=== PATIENT | male | born 1990 | race American Indian/Alaskan Native ===

== ENCOUNTER 2017-09-23 01:55 | Emergency (ER) | payer OTHER ==
[2017-09-23] MEDS ORDERED: NORCO 5/325 PO ONE (08:00)
[2017-09-23] MEDS ORDERED: ZOFRAN ODT PO ONE (08:00)
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
[2017-09-23 08:20] LABS: Basophils # (Auto) 0.1 K/mm3 (0.0-0.1); Eosinophils # (Auto) 0.5 K/mm3 (0.0-0.4); Eosinophils % (Auto) 5.3 % (0.0-4.3); Hematocrit 43.8 % (35.5-45.6); Hemoglobin 14.7 gm/dl (11.8-15.2); Lymphocytes # (Auto) 4.3 K/mm3 (1.2-5.4); Lymphocytes % (Auto) 44.7 % (13.4-35.0); Mean Corpuscular HGB Conc 34 % (32-34); Mean Corpuscular Hemoglobin 29 pg (28-32); Mean Corpuscular Volume 86 fl (84-94); Monocytes # (Auto) 0.6 K/mm3 (0.0-0.8); Monocytes % (Auto) 6.5 % (0.0-7.3); Platelet Count 200 K/mm3 (140-440); Red Blood Count 5.12 M/mm3 (3.65-5.03); Red Cell Distribution Width 13.2 % (13.2-15.2)
[2017-09-23 08:43] LABS: Alanine Aminotransferase 17 units/L (7-56); Albumin 4.6 g/dL (3.9-5); BUN/Creatinine Ratio 18; Blood Urea Nitrogen 16 mg/dL (9-20); Calcium 9.4 mg/dL (8.4-10.2); Hemolysis Index 13
[2017-09-23 09:02] LABS: Bilirubin,Direct < 0.2 mg/dL (0-0.2)
[2017-09-23 09:12] VITALS: BP 118/72
--- NOTE | 2017-09-23 09:20 | Cat Scan Report ---
CT ABDOMEN PELVIS WITH CONTRAST: HISTORY: abdominal pain. COMPARISON: none. TECHNIQUE: Helical CT in 1.25mm intervals following IV contrast. Sagittal and coronal reconstructions. FINDINGS: Lung bases: Normal. Liver: Normal. Biliary system: Normal. Pancreas: Normal. Spleen: Normal. Kidneys/ureters/bladder: Normal. Adrenal glands: Normal. Aorta: Normal. Intestines: Normal. Appendix: Normal. Pelvic viscera: Normal. Ascites: None. Adenopathy: None. Musculoskeletal: Normal. IMPRESSION: Unremarkable CT scan of the abdomen and pelvis with contrast.
== END 2017-09-23 09:57 | disposition home or self-care (01) ==
LOC: ED 01:55
DX: R10.33 Periumbilical pain (principal); F17.200 Nicotine dependence, unspecified, uncomplicated; V89.2XXA Person injured in unspecified motor-vehicle accident, traffic, initial encounter; Y93.89 Activity, other specified; Y92.89 Other specified places as the place of occurrence of the external cause; Y99.8 Other external cause status
CPT/HCPCS: 36415; 74177; 80048; 80074; 85025; 99284; Q9967; Q0162

== ENCOUNTER 2017-10-29 10:09 | Emergency (ER) | payer SELFPAY ==
[2017-10-29 10:44] VITALS: BP 153/91
[2017-10-29 12:16] LABS: Bilirubin,Urine NEG (Negative); Blood,Urine SM (Negative); Color,Urine Yellow (Yellow); Protein,Urine <15 mg/dL mg/dL (Negative)
[2017-10-29] MEDS ORDERED: XYLOCAINE 1% MPF 5 mL INFILTRATI ONE (12:16)
[2017-10-29] MEDS ORDERED: ZITHROMAX PO ONE (12:16)
[2017-10-29] MEDS ORDERED: ROCEPHIN IM ONE (12:16)
--- NOTE | 2017-10-29 12:21 | Emergency Department Report ---
ED Male HPI - General Chief complaint: Urogenital-Male Stated complaint: PENILE DISCHARGE Time Seen by Provider: 10/29/17 11:11 Source: patient Mode of arrival: Ambulatory Limitations: No Limitations - History of Present Illness Initial comments: this is a 27-year-old male that presents with penile discharge x1 day. Patient states he had sexual intercourse unprotected last week and then developed the symptoms. Patient states the penile discharge is greenish in color. Patient denies any testicular pain, testicular swelling, penile pain or ulcers, fever, chills, nausea, vomiting, chest pain, short of breath. Patient denies any dysuria or polyuria or hematuria. Patient denies any allergies or significant past medical history. MD Complaint: penile discharge -: days(s) (1) Location: penis Radiation: none Severity: mild Severity scale (0 -10): 0 Improves with: none Worsens with: none discharge. denies: swelling, mass, rash, urinary retention, blood in urine, dysuria, fever, nausea/vomiting, incontinence - Related Data Previous Rx's Medication Instructions Recorded Last Taken Type Cyclobenzaprine [Flexeril] 10 mg PO TID PRN #12 tablet 09/23/17 Unknown Rx Ibuprofen [Motrin] 800 mg PO Q8HR PRN #30 tablet 09/23/17 Unknown Rx Allergies Allergy/AdvReac Type Severity Reaction Status Date / Time No Known Allergies Allergy Verified 10/29/17 10:43 ED Review of Systems ROS: Stated complaint: PENILE DISCHARGE Other details as noted in HPI Constitutional: denies: chills, fever Eyes: denies: eye pain, eye discharge, vision change ENT: denies: ear pain, throat pain Respiratory: denies: cough, shortness of breath, wheezing Cardiovascular: denies: chest pain, palpitations Endocrine: no symptoms reported Gastrointestinal: denies: abdominal pain, nausea, diarrhea Genitourinary: discharge. denies: urgency, dysuria Musculoskeletal: denies: back pain, joint swelling, arthralgia Skin: denies: rash, lesions Neurological: denies: headache, weakness, paresthesias Psychiatric: denies: anxiety, depression Hematological/Lymphatic: denies: easy bleeding, easy bruising ED Past Medical Hx - Social History Smoking Status: Current Every Day Smoker Substance Use Type: None - Medications Home Medications: Home Medications Medication Instructions Recorded Confirmed Last Taken Type Cyclobenzaprine [Flexeril] 10 mg PO TID PRN #12 tablet 09/23/17 Unknown Rx Ibuprofen [Motrin] 800 mg PO Q8HR PRN #30 tablet 09/23/17 Unknown Rx ED Physical Exam - General Limitations: No Limitations General appearance: alert, in no apparent distress - Head Head exam: Present: atraumatic, normocephalic - Eye Eye exam: Present: normal appearance, PERRL Pupils: Present: normal accommodation - ENT ENT exam: Present: normal exam, normal orophraynx, mucous membranes moist, TM's normal bilaterally, normal external ear exam - Neck Neck exam: Present: normal inspection, full ROM. Absent: tenderness, meningismus, lymphadenopathy, thyromegaly - Respiratory Respiratory exam: Present: normal lung sounds bilaterally. Absent: respiratory distress, wheezes, rales, rhonchi, stridor, chest wall tenderness, accessory muscle use, decreased breath sounds, prolonged expiratory - Cardiovascular Cardiovascular Exam: Present: regular rate, normal rhythm, normal heart sounds. Absent: irregular rhythm, systolic murmur, diastolic murmur, rubs, gallop - GI/Abdominal GI/Abdominal exam: Present: soft, normal bowel sounds - Rectal Rectal exam: Present: deferred - exam: Present: normal inspection. Absent: testicular tenderness, urethral discharge, scrotal swelling, vertical testicular lie, circumcision External exam: Present: normal external exam. Absent: erythema, swelling, lesions, lacerations, ecchymosis, bleeding - Extremities Exam Extremities exam: Present: normal inspection - Back Exam Back exam: Present: normal inspection - Neurological Exam Neurological exam: Present: alert, oriented X3 - Psychiatric Psychiatric exam: Present: normal affect, normal mood - Skin Skin exam: Present: warm, dry, intact, normal color. Absent: rash ED Course Vital Signs 10/29/17 10:43 Temperature 99.3 F Pulse Rate 80 Respiratory 20 Rate Blood Pressure 153/91 O2 Sat by Pulse 98 Oximetry - Reevaluation(s) Reevaluation #1: 10/29/17 12:18 Patient is speaking in full sentences with no signs of distress noted. ED Medical Decision Making - Medical Decision Making This is a 27-year-old male that presents with possible STD. Patient is stable and was examined by me. UA obtained. G/C pending. Patient is to be treated empirically so patient received 1 g of azithromycin and 250 IM Rocephin. Patient is instructed to return in 3-5 days to obtain results of GC. At time of discharge, the patient does not seem toxic or ill in appearance. No acute signs of distress noted. Patient agrees to discharge treatment plan of care. No further questions noted by the patient. Critical care attestation.: If time is entered above; I have spent that time in minutes in the direct care of this critically ill patient, excluding procedure time. ED Disposition Clinical Impression: Possible exposure to STD Disposition: DC-01 TO HOME OR SELFCARE Is pt being admited?: No Does the pt Need Aspirin: No Condition: Stable Instructions: Sexually Transmitted Diseases (ED), Safe Sex (ED) Referrals: PRIMARY CARE, [Primary Care Provider] - 3-5 Days JEET DIETRICH MD [Staff Physician] - 3-5 Days [facility] [Outside] - 3-5 Days [facility] [Outside] - 3-5 Days Forms: Work/School Release Form(ED)
== END 2017-10-29 13:12 | disposition home or self-care (01) ==
LOC: ED 10:09
DX: R36.9 Urethral discharge, unspecified (principal); F17.200 Nicotine dependence, unspecified, uncomplicated
CPT/HCPCS: 81001; 87591; 96372; 99283; J0696

== ENCOUNTER 2018-05-18 16:00 | Emergency (ER) | payer OTHER ==
[2018-05-18 16:22] VITALS: BP 122/71
[2018-05-18] MEDS ORDERED: MOTRIN PO ONE (17:54)
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
== END 2018-05-18 18:45 | disposition home or self-care (01) ==
LOC: ED 16:00
DX: S13.9XXA Sprain of joints and ligaments of unspecified parts of neck, initial encounter (principal); S39.012A Strain of muscle, fascia and tendon of lower back, initial encounter; F17.200 Nicotine dependence, unspecified, uncomplicated; V49.9XXA Car occupant (driver) (passenger) injured in unspecified traffic accident, initial encounter; Y93.89 Activity, other specified; Y99.8 Other external cause status; Y92.411 Interstate highway as the place of occurrence of the external cause
CPT/HCPCS: 72040; 72100; 99283

== ENCOUNTER 2018-11-10 08:54 | Emergency (ER) | payer OTHER ==
--- NOTE | 2018-11-10 09:39 | Emergency Department Report ---
Chief Complaint: Urogenital-Male Stated Complaint: DISCHARGE WHILE URINATION Time Seen by Provider: 11/10/18 09:19 - HPI History of Present Illness: Patient is a 28-year-old male who is presenting with penile discharge. Patient noticed 4 days ago that he was developing some dysuria and now has penile discharge. Patient is sexually active without condom. Patient has no scrotal or testicular pain and also denies any nausea vomiting fevers chills or abdominal pain at this time. - ROS Review of Systems: All the systems are reviewed and are negative - Exam Vital Signs: Vital Signs 11/10/18 09:02 Temperature 98.6 F Pulse Rate 64 Respiratory 18 Rate Blood Pressure 132/82 O2 Sat by Pulse 98 Oximetry Physical Exam: She is alert and oriented 3 in no acute distress abdomen soft and nontender. MSE screening note: Focused history and physical exam performed. Due to findings the following was ordered: ED Medical Decision Making - Medical Decision Making Patient is a nonmedical emergency at this time. He stopped not pale V $150 co-p ay and will follow with the health department. ED Disposition for MSE Clinical Impression: Urethritis Disposition: Z- MED SCREENING EXAM-LEFT Is pt being admited?: No Does the pt Need Aspirin: No Condition: Stable Instructions: Nonspecific Urethritis in Men (ED) Forms: STI Treatment and Prevention
== END 2018-11-10 09:42 | disposition left against medical advice (07) ==
LOC: ED 08:54
DX: N34.2 Other urethritis (principal)
CPT/HCPCS: 99281

== ENCOUNTER 2019-09-04 05:59 | Emergency (ER) | payer SELFPAY ==
[2019-09-04 06:04] VITALS: BP 143/95
--- NOTE | 2019-09-04 08:52 | Emergency Department Report ---
Blank Doc - Documentation Documentation: i went to evaluate patient in exam room and there was no one present in the exam room, it appears patient has eloped from the emergency department, I never evaluated patient
== END 2019-09-04 08:52 | disposition left against medical advice (07) ==
LOC: ED 05:59
DX: R07.0 Pain in throat (principal); Z53.21 Procedure and treatment not carried out due to patient leaving prior to being seen by health care provider